=== PATIENT | female | born 1995 | race American Indian/Alaskan Native ===

== ENCOUNTER 2020-12-12 15:42 | Emergency (ER) | payer SELFPAY ==
[2020-12-12 18:27] VITALS: BP 108/58
[2020-12-12] MEDS ORDERED: SODIUM CHLORIDE 0.9% 1000 ML 1,000 ML IV ONE ×2 (19:44→22:51)
--- NOTE | 2020-12-12 19:45 | Event Note ---
ED Screening Note Date of service: 12/12/20 Time: 19:43 ED Screening Note: 89-year-old female presents to the ER today with complaints of left flank pain. Onset 2 weeks ago. States that pain is getting worse. She reports associated intermittent nausea and vomiting and abdominal pain as well as urinary frequency but she denies any hematuria or dysuria. She states her last menstrual cycle was towards the end of October 2020. She currently has an Implanon. This initial assessment/diagnostic orders/clinical plan/treatment(s) is/are subject to change based on patients health status, clinical progression and re- assessment by fellow clinical providers in the ED. Further treatment and workup at subsequent clinical providers discretion. Patient/guardian urged not to elope from the ED as their condition may be serious if not clinically assessed and managed. Initial orders include: Labs
[2020-12-12 20:00] LABS: Bacteria,Urine 1+ /HPF (Negative); Bilirubin,Urine NEG (Negative); Blood,Urine NEG (Negative); Color,Urine Straw (Yellow); Protein,Urine <15 mg/dL mg/dL (Negative); Urobilinogen,Urine < 2.0 mg/dL (<2.0)
[2020-12-12 20:18] LABS: Alanine Aminotransferase 8 units/L (7-56); BUN/Creatinine Ratio 5; Blood Urea Nitrogen 4 mg/dL (7-17); Calcium 9.2 mg/dL (8.4-10.2); Hemolysis Index 5
[2020-12-12 20:38] LABS: Basophils # (Auto) 0.1 K/mm3 (0.0-0.1); Basophils % (Auto) 0.6 % (0.0-1.8); Eosinophils # (Auto) 0.1 K/mm3 (0.0-0.4); Eosinophils % (Auto) 0.5 % (0.0-4.3); Hematocrit 36.5 % (30.3-42.9); Hemoglobin 11.5 gm/dl (10.1-14.3); Lymphocytes # (Auto) 1.3 K/mm3 (1.2-5.4); Lymphocytes % (Auto) 12.2 % (13.4-35.0); Mean Corpuscular HGB Conc 32 % (30-34); Monocytes # (Auto) 0.7 K/mm3 (0.0-0.8); Monocytes % (Auto) 6.5 % (0.0-7.3); Platelet Count 274 K/mm3 (140-440); Red Blood Count 5.43 M/mm3 (3.65-5.03); Red Cell Distribution Width 14.4 % (13.2-15.2)
[2020-12-12 20:40] LABS: Mean Corpuscular Volume 67 fl (79-97)
[2020-12-12] MEDS ORDERED: ACETAMINOPHEN 500 MG TAB PO ONE (22:51)
[2020-12-12] MEDS ORDERED: IBUPROFEN 800 MG TAB PO ONE (22:51)
[2020-12-12] MEDS ORDERED: LIDOCAINE-MPF (1%) 10 MG/1 ML VIAL 5 ML INFILTRATI ONE (22:52)
--- NOTE | 2020-12-12 23:02 | Emergency Department Report ---
ED General Adult HPI - General Chief complaint: Back Pain/Injury Stated complaint: BACK PAINS Time Seen by Provider: 12/12/20 19:40 Source: patient Mode of arrival: Ambulatory Limitations: No Limitations - History of Present Illness Initial comments: 25-year-old female patient presents to the emergency department with complaints of nontraumatic right lower back pain starting approximately 2 weeks ago. Pain worsened today. No medications prior to arrival. Patient has noticed urinary discoloration intermittently since onset of pain. Patient experienced similar symptoms on a prior occasion several years ago, at which time she was reportedly diagnosed with pyelonephritis. No current antibiotic use. Denies fever, chills, nausea, vomiting, abdominal pain, vaginal bleeding, vaginal discharge, diarrhea, constipation. Denies all other complaints at this time. Severity scale (0 -10): 10 - Related Data Previous Rx's Medication Instructions Recorded Last Taken Type Ibuprofen [Motrin] 600 mg PO Q8H PRN #20 tablet 06/08/18 Unknown Rx Ondansetron [Zofran Odt] 4 mg PO Q8HR PRN #20 tab.rapdis 06/08/18 Unknown Rx Allergies Allergy/AdvReac Type Severity Reaction Status Date / Time No Known Allergies Allergy Unverified 06/08/18 12:07 ED Review of Systems ROS: Stated complaint: BACK PAINS Other details as noted in HPI Other: GENERAL: Negative for fever, chills, weight change, anorexia, fatigue. ENT: Negative for ear pain, difficulty hearing, sore throat, nasal congestion, epistaxis. CARDIOVASCULAR: Negative for chest pain, palpitations, lower extremity swelling. PULMONARY: Negative for cough, dyspnea, wheezing, orthopnea, cyanosis. GASTROINTESTINAL: Negative for abdominal pain, nausea, vomiting, diarrhea, constipation. GENITOURINARY: Positive for urinary discoloration. MUSCULOSKELETAL: Positive for back pain. NEUROLOGICAL: Negative for headache, seizure, syncope, paresthesias, weakness. INTEGUMENTARY: Negative for erythema, rash, diaphoresis, laceration, ecchymosis. HEMATOLOGICAL: Negative for hemoptysis, hematemesis, hematochezia, hematuria. PSYCHIATRIC: Negative for hallucinations, suicidal ideation, homicidal ideation, anxiety, depression. ED Past Medical Hx - Past Medical History Previous Medical History?: No - Surgical History Past Surgical History?: No - Social History Smoking Status: Current Every Day Smoker Substance Use Type: Alcohol, Marijuana - Medications Home Medications: Home Medications Medication Instructions Recorded Confirmed Last Taken Type Ibuprofen [Motrin] 600 mg PO Q8H PRN #20 tablet 06/08/18 Unknown Rx Ondansetron [Zofran Odt] 4 mg PO Q8HR PRN #20 tab.rapdis 06/08/18 Unknown Rx ED Physical Exam - General Limitations: No Limitations - Other Other exam information: General: Awake and alert. No acute distress. Head: Atraumatic, normocephalic. Eyes: EOMI. Pupils are equal and round. Normal sclera and conjunctiva. ENT: Oral mucosa is moist. Normal pharyngeal exam. Neck: Supple. No lymphadenopathy. Pulmonary: No respiratory distress. Clear to auscultation bilaterally. Cardiac: Tachycardic. Pulses are palpable and equal bilaterally. No lower extremity cyanosis or edema. Skin: Warm and dry. No rashes. Abdomen: Soft, non-tender, non-protuberant. No guarding, rigidity, or rebound. Bowel sounds are normal. No organomegaly or masses noted. Back: Normal alignment. Left CVA tenderness. Extremities: Symmetrical. Full range of motion intact. Neurological: Alert and oriented, appropriately interactive, no focal deficits. Psych: Cooperative. Appropriate mood and affect. Speech is evenly metered. Thoughts are logically construed. ED Course Vital Signs 12/12/20 12/13/20 18:26 02:15 Temperature 100.9 F H 98.7 F Pulse Rate 110 H 78 Respiratory 20 17 Rate Blood Pressure 108/58 [Right] O2 Sat by Pulse 99 99 Oximetry ED Medical Decision Making - Lab Data Result diagrams: 12/12/20 19:42 12/12/20 19:42 - Radiology Data Ordering Physician: KENNA LIVINGSTON Date of Service: 12/12/20 Procedure(s): CT abdomen pelvis w con Accession Number(s): [id number] cc: KENNA LIVINGSTON CT ABDOMEN AND PELVIS WITH IV CONTRAST INDICATION: Right-sided abdominal pain and back pain TECHNIQUE: Following the administration of intravenous contrast, multiple axial CT images of the abdomen and pelvis were acquired. Sagittal and coronal reformats were obtained. All CT performed at this facility utilize dose reduction techniques including automated exposure control, iterative reconstruction and weight based dosing when appropriate to reduce patient radiation dose to as low as reasonably achievable. COMPARISON: CT of the abdomen and pelvis, 06/08/2018 FINDINGS: Limited imaging of the bilateral lung bases demonstrates no acute abnormality. ABDOMEN: The liver, spleen, pancreas, gallbladder, bilateral adrenal glands and bilateral kidneys show no evidence of acute abnormality. The abdominal aorta is normal in caliber. There are multiple loops of moderately dilated fluid-filled small bowel throughout the abdomen without focal transition point. There is a large stool and gas burden throughout the colon. The appendix is identified and appears normal. PELVIS: No large amount of free pelvic fluid is identified. The urinary bladder and uterus appear grossly normal. BONES AND SOFT TISSUES: No significant abnormality. IMPRESSION: 1. Multiple loops of dilated fluid-filled small bowel. There is also a large stool and gas pertinent throughout the colon. Therefore, findings could be secondary to significant constipation. However, a developing small bowel obstruction could have a similar appearance. Signer Name: Lucy Lawson MD Signed: 12/13/2020 1:05 AM Workstation Name: [id number] Transcribed By: EB Dictated By: Lucy Lawson MD Electronically Authenticated By: Lucy Lawson MD Signed Date/Time: 12/13/20 0105 - Medical Decision Making Differential diagnosis including but not limited to: pyelonephritis, nephrolithiasis, ectopic , urinary tract infection, appendicitis, ovarian cyst/torsion, pelvic inflammatory disease On reevaluation, patient remains stable. Her pain is controlled. Repeat abdominal exam is benign. Patient was tachycardic with borderline temperature and minimal leukocytosis; treated empirically with IV Rocephin as well as IV fluids pending completion of diagnostic evaluation. Tachycardia resolved after IV fluids. CT of the abdomen/pelvis shows multiple loops of dilated fluid- filled small bowel as well as large stool/gas burden throughout the colon. Small bowel obstruction considered however patient has no abdominal tenderness, no history of prior abdominal surgeries, no constipation -- last bowel movement was two days ago --and continues to pass gas. Urinalysis is unremarkable. History and exam findings suggestive of viral illness; no clinical indication for further diagnostic work-up on an emergent basis at this time. Patient will be discharged home to continue Tylenol and Motrin as directed for fever and encouraged to increase her dietary intake of fiber rich foods in light of radio graphic findings. Patient expressed understanding and is agreeable to plan of care. Disease transmission precautions discussed. Strict return precautions provided. Repeat exam is unremarkable and benign. History, exam, diagnostic testing, and current condition do not suggest worrisome pathology to warrant further testing, continued ED treatment, admission, or surgical evaluation at this point. Given the low probability of a significant medical illness, it would be more likely to result in harm than benefit to perform further testing at this stage. Discussed findings, presumptive diagnosis, need for follow-up and specific signs/symptoms that should prompt immediate return to the emergency department. Instructions were explained in detail to the patient in addition to giving written discharge information. Patient expressed understanding and was given the opportunity to ask questions, all of which were satisfactorily answered prior to discharge home. Critical care attestation.: If time is entered above; I have spent that time in minutes in the direct care of this critically ill patient, excluding procedure time. ED Disposition Clinical Impression: Left low back pain Qualifiers: Chronicity: acute Sciatica presence: without sciatica Qualified Code(s): M54.5 - Low back pain Disposition: TO HOME OR SELFCARE Is pt being admited?: No Does the pt Need Aspirin: No Condition: Stable Additional Instructions: Take Tylenol every 4 hours and Motrin every 8 hours as needed for pain/fever. Rest. Drink plenty fluids. Apply heat to affected area as needed for pain. Increase your dietary intake of fiber rich foods. Follow-up with primary care provider this week. Call today to schedule an appointment. See referral information below. Return to the emergency department immediately for new or worsening symptoms. Specifically, return to the emergency department immediately for vomiting, abdominal pain, pelvic pain, vaginal bleeding, difficulty using the bathroom, or any other concerns. Referrals: TOLU MORALES MD [Staff Physician] - 3-5 Days [facility] [Provider Group] - 3-5 Days [facility] [Outside] - 3-5 Days [facility] [Outside] - 3-5 Days [facility] [Outside] - 3-5 Days Time of Disposition: 01:24
[2020-12-12] MEDS ORDERED: cefTRIAXone/NS 1 GM/50 ML 1 GM/50 ML BAG IV ONE (23:30)
--- NOTE | 2020-12-13 01:10 | Cat Scan Report ---
CT ABDOMEN AND PELVIS WITH IV CONTRAST INDICATION: Right-sided abdominal pain and back pain TECHNIQUE: Following the administration of intravenous contrast, multiple axial CT images of the abdo men and pelvis were acquired. Sagittal and coronal reformats were obtained. All CT performed at this facility utilize dose reduction techniques including automated exposure control, iterative reconstru ction and weight based dosing when appropriate to reduce patient radiation dose to as low as reasonab ly achievable. COMPARISON: CT of the abdomen and pelvis, 06/08/2018 FINDINGS: Limited imaging of the bilateral lung bases demonstrates no acute abnormality. ABDOMEN: The liver, spleen, pancreas, gallbladder, bilateral adrenal glands and bilateral kidneys show no evid ence of acute abnormality. The abdominal aorta is normal in caliber. There are multiple loops of mode rately dilated fluid-filled small bowel throughout the abdomen without focal transition point. There is a large stool and gas burden throughout the colon. The appendix is identified and appears normal. PELVIS: No large amount of free pelvic fluid is identified. The urinary bladder and uterus appear grossly nor mal. BONES AND SOFT TISSUES: No significant abnormality. IMPRESSION: 1. Multiple loops of dilated fluid-filled small bowel. There is also a large stool and gas pertinent throughout the colon. Therefore, findings could be secondary to significant constipation. However, a developing small bowel obstruction could have a similar appearance. Signer Name: Lucy Lawson MD Signed: 12/13/2020 1:05 AM Workstation Name: [id number]
== END 2020-12-13 02:15 | disposition home or self-care (01) ==
LOC: ED 15:42
DX: M54.5 Low back pain (principal); F17.200 Nicotine dependence, unspecified, uncomplicated; F12.90 Cannabis use, unspecified, uncomplicated; Z72.89 Other problems related to lifestyle; Z79.899 Other long term (current) drug therapy
CPT/HCPCS: 36415; 74177; 80053; 81001; 83735; 84703; 85025; 87086; 96365; 99284; J0696; J7030; Q9967

== ENCOUNTER 2020-12-25 16:23 | Emergency (ER) | payer SELFPAY ==
[2020-12-25 18:19] LABS: Bilirubin,Urine NEG (Negative); Blood,Urine NEG (Negative); Color,Urine Yellow (Yellow); Mucus,Urine FEW /HPF; Protein,Urine <15 mg/dL mg/dL (Negative)
[2020-12-25] MEDS ORDERED: ONDANSETRON 4 MG ODT TAB PO ONE (18:36)
[2020-12-25] MEDS ORDERED: SODIUM CHLORIDE 0.9% 1000 ML 1,000 ML IV ONE (18:36)
[2020-12-25 19:15] LABS: Basophils # (Auto) 0.1 K/mm3 (0.0-0.1); Basophils % (Auto) 1.3 % (0.0-1.8); Eosinophils # (Auto) 0.2 K/mm3 (0.0-0.4); Eosinophils % (Auto) 4.3 % (0.0-4.3); Hematocrit 33.1 % (30.3-42.9); Hemoglobin 10.7 gm/dl (10.1-14.3); Lymphocytes # (Auto) 1.8 K/mm3 (1.2-5.4); Lymphocytes % (Auto) 37.4 % (13.4-35.0); Mean Corpuscular HGB Conc 32 % (30-34); Mean Corpuscular Volume 68 fl (79-97); Monocytes # (Auto) 0.3 K/mm3 (0.0-0.8); Monocytes % (Auto) 6.6 % (0.0-7.3); Platelet Count 306 K/mm3 (140-440); Red Blood Count 4.87 M/mm3 (3.65-5.03); Red Cell Distribution Width 15.4 % (13.2-15.2)
--- NOTE | 2020-12-25 19:24 | Emergency Department Report ---
ED General Adult HPI - General Chief complaint: Nausea/Vomiting/Diarrhea Stated complaint: LEFT UPPER ARM PAIN/NAUSEA Time Seen by Provider: 12/25/20 18:36 Source: patient Mode of arrival: Ambulatory Limitations: No Limitations - History of Present Illness Initial comments: 21 -Thai female presents to the patient presents ER complaining of lo wer back pain concerned that she may be nausea and states that her control her arm is causing discomfort. Patient states she has been having hot and cold no sweating does admit to urine being discolored denies any dysuria no urinary frequency urgency. Denies any trauma to her back. She is 0 last menstrual period 11/25/2020. 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 Onset/Timin -: week(s) Location: back Severity scale (0 -10): 7 Consistency: intermittent Improves with: rest Worsens with: movement Associated Symptoms: nausea/vomiting. denies: confusion, chest pain, cough, loss of appetite, malaise, shortness of breath, weakness Treatments Prior to Arrival: none - Related Data Previous Rx's Medication Instructions Recorded Last Taken Type Ibuprofen [Motrin] 600 mg PO Q8H PRN #20 tablet 06/08/18 Unknown Rx Ondansetron [Zofran Odt] 4 mg PO Q8HR PRN #20 tab.rapdis 06/08/18 Unknown Rx Allergies Allergy/AdvReac Type Severity Reaction Status Date / Time No Known Allergies Allergy Unverified 06/08/18 12:07 ED Review of Systems ROS: Stated complaint: LEFT UPPER ARM PAIN/NAUSEA Other details as noted in HPI Comment: All other systems reviewed and negative ED Past Medical Hx - Past Medical History Previous Medical History?: No - Surgical History Past Surgical History?: No - Social History Smoking Status: Current Every Day Smoker Substance Use Type: Alcohol, Marijuana - Medications Home Medications: Home Medications Medication Instructions Recorded Confirmed Last Taken Type Ibuprofen [Motrin] 600 mg PO Q8H PRN #20 tablet 06/08/18 Unknown Rx Ondansetron [Zofran Odt] 4 mg PO Q8HR PRN #20 tab.rapdis 06/08/18 Unknown Rx ED Physical Exam - General Limitations: No Limitations General appearance: alert - Head Head exam: Present: atraumatic - Eye Eye exam: Present: normal appearance - ENT ENT exam: Present: mucous membranes dry - Neck Neck exam: Present: normal inspection, full ROM - Respiratory Respiratory exam: Present: normal lung sounds bilaterally. Absent: chest wall tenderness, accessory muscle use - Cardiovascular Cardiovascular Exam: Present: regular rate, normal rhythm - GI/Abdominal GI/Abdominal exam: Present: soft. Absent: distended, tenderness - Extremities Exam Extremities exam: Present: normal inspection, full ROM - Back Exam Back exam: Present: full ROM, paraspinal tenderness (right side). Absent: rash noted - Neurological Exam Neurological exam: Present: alert, oriented X3, normal gait - Psychiatric Psychiatric exam: Present: normal affect, normal mood - Skin Skin exam: Present: warm, dry, intact, normal color. Absent: rash ED Course Vital Signs 12/25/20 17:04 Temperature 99.0 F Pulse Rate 75 Respiratory 12 Rate Blood Pressure 116/68 O2 Sat by Pulse 100 Oximetry ED Medical Decision Making - Lab Data Result diagrams: 12/25/20 18:43 12/25/20 18:43 Laboratory Tests 12/25/20 12/25/20 12/25/20 18:43 18:43 18:43 WBC 4.7 RBC 4.87 Hgb 10.7 Hct 33.1 MCV 68 L MCH 22 L MCHC 32 RDW 15.4 H Plt Count 306 Lymph % (Auto) 37.4 H Sutton % (Auto) 6.6 Eos % (Auto) 4.3 Baso % (Auto) 1.3 Lymph # (Auto) 1.8 Sutton # (Auto) 0.3 Eos # (Auto) 0.2 Baso # (Auto) 0.1 Seg Neutrophils % 50.4 Seg Neutrophils # 2.4 Sodium 142 Potassium 4.1 Chloride 108.2 H Carbon Dioxide 25 Anion Gap 13 BUN 7 Creatinine 0.9 Estimated GFR > 60 BUN/Creatinine Ratio 8 Glucose 82 Calcium 8.5 Total Bilirubin 0.30 AST 12 ALT 5 L Alkaline Phosphatase 69 Total Protein 6.6 Albumin 3.6 L Albumin/Globulin Ratio 1.2 Lipase 22 HCG, Quant < 2 Urine Color Urine Turbidity Urine pH Ur Specific [place] Urine Protein Urine Glucose (UA) Urine Ketones Urine Blood Urine Nitrite Urine Bilirubin Urine Urobilinogen Ur Leukocyte Esterase Urine WBC (Auto) Urine RBC (Auto) U Epithel Cells (Auto) Urine Mucus 12/25/20 Unknown WBC RBC Hgb Hct MCV MCH MCHC RDW Plt Count Lymph % (Auto) Sutton % (Auto) Eos % (Auto) Baso % (Auto) Lymph # (Auto) Sutton # (Auto) Eos # (Auto) Baso # (Auto) Seg Neutrophils % Seg Neutrophils # Sodium Potassium Chloride Carbon Dioxide Anion Gap BUN Creatinine Estimated GFR BUN/Creatinine Ratio Glucose Calcium Total Bilirubin AST ALT Alkaline Phosphatase Total Protein Albumin Albumin/Globulin Ratio Lipase HCG, Quant Urine Color Yellow Urine Turbidity Clear Urine pH 5.0 Ur Specific [place] 1.013 Urine Protein <15 mg/dl Urine Glucose (UA) Neg Urine Ketones Neg Urine Blood Neg Urine Nitrite Neg Urine Bilirubin Neg Urine Urobilinogen 4.0 Ur Leukocyte Esterase Neg Urine WBC (Auto) 1.0 Urine RBC (Auto) 1.0 U Epithel Cells (Auto) 2.0 Urine Mucus Few - Medical Decision Making 21 -Thai female presents to the patient presents ER complaining of lower back pain concerned that she may be nausea and states that her control her arm is causing discomfort. Patient states she has been having hot and cold no sweating does admit to urine being discolored denies any dysuria no urinary frequency urgency. Denies any trauma to her back. She is 0 last menstrual period 11/25/2020. 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 Patient was given Zofran fluids. test is negative urinalysis within normal limits labs are nonactionable. Patient has been sitting here comfortably with no vomiting normal examination. Patient be discharged home Critical care attestation.: If time is entered above; I have spent that time in minutes in the direct care of this critically ill patient, excluding procedure time. ED Disposition Clinical Impression: Left low back pain, Nausea & vomiting Disposition: DC-01 TO HOME OR SELFCARE Is pt being admited?: No Does the pt Need Aspirin: No Condition: Stable Additional Instructions: You can take ibuprofen or Tylenol for pain. Increase your fluid intake. test is negative. Referrals: [facility] [Provider Group] - 3-5 Days Forms: Work/School Release Form(ED)
[2020-12-25 19:39] LABS: Alanine Aminotransferase 5 units/L (7-56); Albumin 3.6 g/dL (3.9-5); BUN/Creatinine Ratio 8; Blood Urea Nitrogen 7 mg/dL (7-17); Calcium 8.5 mg/dL (8.4-10.2); Hemolysis Index 2
[2020-12-25 20:20] VITALS: BP 115/78
== END 2020-12-25 20:20 | disposition home or self-care (01) ==
LOC: ED 16:23
DX: M54.5 Low back pain (principal); R11.2 Nausea with vomiting, unspecified; F17.200 Nicotine dependence, unspecified, uncomplicated; F12.90 Cannabis use, unspecified, uncomplicated; Z72.89 Other problems related to lifestyle; Z79.899 Other long term (current) drug therapy
CPT/HCPCS: 36415; 80053; 81001; 83690; 84702; 85025; 96360; 99283; J7030; Q0162